=== PATIENT | female | born 1985 | race Caucasian/White ===

== ENCOUNTER 2023-12-02 07:53 | Day surgery (SDC) | payer OTHER, MEDICAID, SELFPAY ==
[2023-11-29 10:56] VITALS: BMI 38.9
--- NOTE | 2023-12-02 | PATH_ITS ---
[facility] Accession Number: [id number] No. of containers..02 Tissue . 01 Material submitted: . PART A: cervix - LEEP CONE CUT AT 12 O'CLOCK PART B: endocervix - ENDOCERVICAL CURETTINGS . 01 Diagnosis: A. Uterine Cervix, LEEP Conization (Cut at 12 o'clock): High-grade squamous intraepithelial lesion (MAGDALENA-3/severe squamous dysplasia), extensively involving the endocervical glands. Negative for glandular dysplasia and invasive carcinoma. Surgical margins: Negative for involvement by severe squamous dysplasia, please see comment. . B. Endocervix, Curettings: Benign endocervical/ectocervical epithelium. Negative for dysplasia and malignancy. [facility] 12/06/2023 1523 Local . 01 Comment: Although severe squamous dysplasia approaches close to the endocervical margin, it is not at the cauterized or inked endocervical tissue edge. . 01 Electronically signed: . Ji Barragan MD, Pathologist NPI- [id number] . 01 Gross description: . A. Received in formalin labeled with the pateint's name, , and LEEP cone cut at 12 o'clock, and consists of an oriented, incised fragment of cervix with the incision designating 12 o'clock per the requisition. The specimen is reapproximated to measure 1.5 cm from 12 to 6, 1.6 cm from 3 to 9, and 0.6 cm thick. The ectocervix is blair and finely granular with a slit-like os measuring 0.6 cm in diameter. The endocervical margin is inked orange while the remaining stromal margins are inked blue. The specimen is serially sectioned, and submitted entirely as follows: A1: 12 to 3. A2: 3 to 6. A3: 6 to 9. A4: 9 to 12. B. Received in formalin labeled with the patient's name, , and endocervical curetting, and consists of multiple blair soft tissue fragments admixed with mucohemorrhagic material aggregating to 1.2 x 0.9 x 0.1 cm. Filtered and submitted entirely in cassette B1. ([id number]) /DEE 12/03/2023 2206 Local . 01 Pathologist provided ICD-10: R87.613, D06.9 . 01 CPT . 331413, 083130 Specimen Comment: A courtesy copy of this report has been sent to [phone] Performed at: 01 [facility] [address] [place] [address], [place], [place] [id number] MD Rich Alston MD Phone: [phone]
[2023-12-02 08:25] VITALS: BP 140/75; PULSE 84; RESP 16; TEMP 36.5; O2SAT 98; BMI 38.9
[2023-12-02] MEDS: LACTATED RINGERS 1,000 ML 42 ML IV (08:33)
--- NOTE | 2023-12-02 09:14 | PM.PREOP ---
Pre-operative Note COVID-19 COVID-19 status: Not tested Interval Note History & Physical reviewed/Exam performed by Physician: Yes Changes to H&P: No
--- NOTE | 2023-12-02 09:15 | PM.GYNHP.1 ---
History of Present Illness History of Present Illness Reason for admission: other (High grade dysplasia) Narrative: Lashell Pak is a 38 year old female colposcopically directed biopsy of the cervix demonstrating high-grade squamous dysplasia admitted now for LEEP. [facility] Medical History (Updated 12/01/23 @ 20:05 by Nancy Mota) Herpes Family History (Updated 12/01/23 @ 20:05 by Nancy Mota) Father Cancer Social History household members: family and friend(s) Smoking Status: Current every day smoker alcohol intake: current Meds Home Medications and Allergies Home Medications Medication Instructions Recorded Confirmed Type control pills PO 10/11/23 History rizatriptan 5 mg tablet 5 mg PO ONCE 10/11/23 12/02/23 History methocarbamol 750 mg tablet 750 mg PO 4XD PRN muscle spasm 12/02/23 12/02/23 History Allergies Allergy/AdvReac Type Severity Reaction Status Date / Time latex Allergy Verified 12/02/23 08:15 Bleach (Sodium Hypochlorite) AdvReac Rash Verified 12/02/23 08:34 Review of Systems Review of Systems Narrative: Problem-specific ROS positives included in HPI Exam Vital Signs (past 8 hours): - 12/02/23 08:25 Temperature 97.7 F Pulse Rate 84 Respiratory Rate 16 Blood Pressure 140/75 Pulse Oximetry 98 Oxygen Delivery Method Room Air Oxygen Delivery Method Room Air Const General: cooperative and comfortable Nutritional Appearance: average body habitus Orientation: alert and oriented x3 HENMT Head: normal to inspection, atraumatic and abrasion Ears: hearing grossly normal bilaterally Face and sinus: face symmetric Eyes General: appearance normal, both eyes and all related structures Conjunctivae: conjunctivae normal Sclera: sclerae normal EOM: EOM intact bilaterally Neck Neck: normal visual inspection Resp Effort & Inspection: normal respiratory effort and able to speak in complete sentences Auscultation: clear to auscultation bilaterally Cardio Rate: regular rate Rhythm: regular rhythm Heart Sounds: S1 normal, S2 normal and no murmurs GI Inspection: normal to inspection Palpation: soft and no hepatosplenomegaly External Female Exam: other (No significant bleeding noted) Extrem General: no calf tenderness Psych Appearance: grossly normal Mental Status: mental status grossly normal Speech and Movement: speech and movement normal Mood: congruent mood Affect: normal affect Attitude: cooperative Thought Process: normal Thought Content: normal Judgment: judgment good Assessment & Plan Assessment and plan (1) HGSIL (high grade squamous intraepithelial lesion) on Pap smear of cervix: Status: Acute (2) Human papilloma virus (HPV) DNA test positive: Status: Acute Assessment & Plan narrative: Patient counseled regarding alternatives, risks, benefits and potential complications associated with LEEP. With full understanding of the above, a written consent was executed, signed, and witnessed this date. Time Spent With Patient Time with patient: less than 30 minutes
[2023-12-02] MEDS: ACETIC ACID 500 ML IRRIG 20 ML TOP (09:57)
--- NOTE | 2023-12-02 09:59 | SUR.OPER ---
Lithotomy on padded OR bed, head on pillow, arms secured on padded arm boards at <90 degrees abduction. Legs secured in padded yellow fins stirrups.
[2023-12-02 10:13] VITALS: BP 122/66; PULSE 59; RESP 17; TEMP 36.2; O2SAT 98
[2023-12-02 10:18] VITALS: BP 110/63; PULSE 74; RESP 12; O2SAT 100
[2023-12-02 10:23] VITALS: BP 123/62; PULSE 63; RESP 16; O2SAT 100
--- NOTE | 2023-12-02 10:23 | SUR.PHASEI ---
Received to PACU after general anesthesia. Airway patent, self maintained. Report received from Dr Velásquez and SHERRON Dacosta. Upper dentures returned to patient.
--- NOTE | 2023-12-02 10:24 | PM.GYNOP.1 ---
Operative Date/Time/Diagnoses Date of procedure: 12/02/23 Time of procedure: 09:40 Pre-op diagnosis: High-grade squamous dysplasia Positive high-risk HPV test Post-op diagnosis: same Procedure & Clinicians Procedure: Procedures Operation Date: 12/02/23 09:00 Actual Procedure Side Surgeon p LEEP Procedure Pankaj Barnes MD Indications: Pap and colposcopically directed biopsies demonstrated HGSIL with positive high-risk HPV co-testing. Surgeon: Pankaj Barnes Anesthesia Type: General Operative Notes Findings: Transformation zone in canal. No aceto-white epithelium lesions of the cervical portio. Closure Type: not applicable Specimen(s): other (LEEP cone, cut at 12:00; endocervical curettings) Estimated blood loss (mL): 25 Blood products transfused: none Procedure in detail: With the patient under satisfactory general anesthesia in the modified dorsal lithotomy position, the perineum and lower abdomen were prepped and draped in the usual manner for LEEP. Pre-surgical safety time-out was then taken in accordance with [facility] Main OR protocols. An insulated speculum was then inserted vagina and the cervix visualized. The vagina was filled with vinegar solution and time was given for development of aceto-white epithelium. A 15 x 15 mm loop was then used to perform the LEEP with 60 w of pure cut. The cone specimen was then incised at 12:00 p.m. and submitted as a pathologic specimen. ECC was then performed with a Jacintoian box curette and a separate specimen obtained/submitted. Using a ball cautery, coagulation cone bed was performed circumferentially with complete hemostasis achieved easily. The operation was then terminated by removal of the speculum from the vagina. This patient was then awakened and transferred to the PACU after having tolerated the procedure well. Complications: none Post-operative Condition: stable Disposition: PACU Plan for aftercare: Routine postoperative care with follow-up planned for 2 weeks postop
[2023-12-02 10:28] VITALS: BP 111/64; PULSE 58; RESP 10; TEMP 36.6; O2SAT 100
[2023-12-02 10:30] VITALS: BP 117/52; PULSE 59; RESP 20; TEMP 36.6; O2SAT 100
== END 2023-12-02 11:03 | disposition home or self-care (01) ==
PROVIDERS: PCP Family Medicine; Referring Provider Obstetrics & Gynecology; Visit Provider Obstetrics & Gynecology
PROC: 0UBC7ZZ Excision of Cervix, Via Natural or Artificial Opening (ICD-10-PCS; CPT 57522; principal; 2023-12-02 09:00)
DX: D06.0 Carcinoma in situ of endocervix (principal); F17.200 Nicotine dependence, unspecified, uncomplicated
CPT/HCPCS: 57461; 81025; J1885; J2250; J2405; J2704; J3010; J3490